=== PATIENT | female | born 1980 | race Caucasian/White ===

== ENCOUNTER 2023-06-18 19:01 | Emergency (ER) | payer BC, SELFPAY ==
[2023-06-18 19:10] VITALS: BP 113/83; PULSE 68; RESP 18; O2SAT 100; BMI 23.5
--- NOTE | 2023-06-18 19:35 | ED_ITS ---
HPI - General Adult General Date Seen: 06/18/23 Chief complaint: Ear/Nose/Throat Problem Stated complaint: vomiting, food stuck in throat, chest pain Time Seen by Provider: 06/18/23 19:03 Source: patient and family Mode of arrival: ambulatory Limitations: no limitations History of Present Illness HPI narrative: Patient is a 43-year-old who is here with her for evaluation of impacted food. She describes food stuck in her airway, but does not describe any episode of choking or coughing. She says she was swallowing food including pork, potato and sour crowd out, and feels that it has not gone down. She says that bystanders try doing the Heimlich which did not make a difference. She does not have any difficulty breathing. She does have pain at the base of her throat. She says she has had this happen in the past several times but she has always been able to get the food to go down. She is having difficulty swallowing secretions, says it is painful to swallow, to did try and drink a little water but does not believe that it went down, think she had to spit it back out. Related Data Home Medications Medication Instructions Recorded Confirmed No Known Home Medications 06/18/23 06/18/23 Allergies Allergy/AdvReac Type Severity Reaction Status Date / Time No Known Drug Allergies Allergy Verified 06/18/23 19:14 Review of Systems Status of ROS: Reports: 6 or more systems reviewed and unremarkable except as noted in History and below Exam Narrative: Exam Narrative: Vital signs as noted above. In general, an alert, well-appearing patient. Breathing easily. Voice is normal. Head: Normocephalic, atraumatic. Eyes: Pupils are equal reactive. Extraocular movements are full. Conjunctivae are normal. ENT: Mucous membranes are moist. Throat is normal. Neck: Supple without lymphadenopathy. No stridor. Heart: Regular rate and rhythm. No murmur or rub. Lungs: Clear bilaterally. No increased work of breathing, crackles or wheezes. Abdomen: Soft and nontender. No organomegaly. Neurologic: Patient is alert and oriented to person and place. Speech is fluent. Face is symmetric. Moves all extremities equally. Affect: Normal. Skin: Warm and dry. Well perfused. Const: Vital Signs, click to edit/add: Vital Signs - 24 hr 06/18/23 19:10 Pulse Rate [Right Pulse Oximeter] 68 Respiratory Rate 18 Blood Pressure [Ri ght Upper Arm] 113/83 Pulse Oximetry 100 Oxygen Delivery Me thod Room Air Documenting provider has reviewed patient's vital signs: yes Course Course ED Course: Overall, her story suggest esophageal food impaction rather than an airway issue. We will try a couple of things here including pop rocks and glucagon to see if we can get this to pass without procedural intervention. She was able to pass the food into her stomach with glucagon and pop rocks. She feels improved, is drinking without difficulty. Stable to discharge home, rec [facility] outpatient upper endoscopy, her usual clinic is the [facility] in [place] so I have suggested that she schedule with Dr. Castellano. Talked about ways to minimize further food impaction in the near term. Return for recurrent symptoms. Vital Signs Vital signs: Initial Vital Signs Pulse Rate 68 06/18/23 19:10 Pulse Rhythm Regular 06/18/23 19:10 Respiratory Rate 18 06/18/23 19:10 Blood Pressure 113/83 06/18/23 19:10 Blood Pressure Mean 93 06/18/23 19:10 Blood Pressure Position Sitting 06/18/23 19:10 Pulse Oximetry 100 06/18/23 19:10 Oxygen Delivery Method Room Air 06/18/23 19:10 Vital Signs Pulse Rate 68 06/18/23 19:10 Respiratory Rate 18 06/18/23 19:10 Blood Pressure 113/83 06/18/23 19:10 Pulse Oximetry 100 06/18/23 19:10 Oxygen Delivery Method Room Air 06/18/23 19:10 Pulse Rate 68 06/18/23 19:10 Respiratory Rate 18 06/18/23 19:10 Blood Pressure 113/83 06/18/23 19:10 Pulse Oximetry 100 06/18/23 19:10 Oxygen Delivery Method Room Air 06/18/23 19:10 Medications Administered Medications: Generic Name Dose Route Start Last Admin Trade Name Freq PRN Reason Stop Dose Admin Glucagon 1 mg 06/18/23 19:34 06/18/23 19:48 Glucagon,Human Recombinant 1 Mg/Ml Vial IV 06/18/23 19:35 1 mg ONCE ONE Administration Sodium Chloride 1,000 mls @ 1,000 mls/hr 06/18/23 19:45 06/18/23 19:45 0.9 % Sodium Chloride 1000 Ml IV 06/18/23 20:44 1,000 mls/hr .Q1H MARIA FERNANDA Administration Simethicone/Sodium Bicarb/Citric Ac 1 each 06/18/23 19:28 06/18/23 19:49 Simethicone/Sod Bicarb/Cit Ac 1 Each Gran.Ef.Pk PO 06/18/23 19:29 1 each ONCE ONE Administration Discharge Plan Discharge Clinical Impression: Esophageal obstruction due to food impaction Patient Disposition: Home, Self-Care Condition: Improved Instructions: Food Impaction (ED) Additional Instructions: I would recommend that you call the [facility] tomorrow and schedule an upper endoscopy to evaluate following esophageal food impaction. In the meantime, make sure you are taking relatively small bites of food, 2 your food thoroughly and drink plenty of water while eating. If you have recurrent symptoms, return to the emergency department. Prescriptions: No Action No Known Home Medications Follow Up/Referrals: Provider,Not a Local [Primary Care Provider] - Stand Alone Forms: [facility] Inst[facility]
[2023-06-18] MEDS: 0.9 % SODIUM CHLORIDE 1000 ml 1,000 ML IV (19:45)
[2023-06-18] MEDS: GLUCAGON,HUMAN RECOMBINANT 1 MG/ML VIAL IV (19:48)
[2023-06-18] MEDS: SIMETHICONE/SOD BICARB/CIT AC 1 EACH GRAN.EF.PK PO (19:49)
== END 2023-06-18 20:07 | disposition home or self-care (01) ==
PROVIDERS: Emergency Provider Emergency Medicine
DX: T18.128A Food in esophagus causing other injury, initial encounter (principal)
CPT/HCPCS: 99283; 99284; J1610; J7030